=== PATIENT | male | born 1965 | race Hispanic/Latino ===

== ENCOUNTER 2024-04-09 10:13 | Outpatient (CLI) | payer OTHER | END 2024-04-09 10:14 | disposition home or self-care (01) | LOC: CSHULT 10:13 | PROVIDERS: ATTEND Nurse Practitioner Family | DX: R10.13 Epigastric pain (principal); K80.20 Calculus of gallbladder without cholecystitis without obstruction; K76.0 Fatty (change of) liver, not elsewhere classified | CPT/HCPCS: 76700 ==